=== PATIENT | male | born 1995 | race Caucasian/White ===

== ENCOUNTER 2019-02-18 23:37 | Emergency (ER) | payer OTHER ==
[~2019-02-18] VITALS: Ht 185.4 cm; Wt 83.1 kg
[2019-02-18 23:43] VITALS: BP 143/103
--- NOTE | 2019-02-19 00:24 | NUR ---
Pt states lifting weights this pm and felt "something cause a lot of pain in my chest" while lifting. Pt denies any sob. Pt grasping chest and appears to be in moderate distress. Denies any medical hx/family hx.
[2019-02-19] MEDS ORDERED: KETOROLAC 30 MG/1 ML ONE (00:29)
[2019-02-19] MEDS ORDERED: KETOROLAC 30 MG/1 ML IM ONE (00:30)
== END 2019-02-19 01:28 | disposition home or self-care (01) ==
LOC: ED 02-19 01:00
DX: R07.89 Other chest pain (principal); J45.909 Unspecified asthma, uncomplicated
CPT/HCPCS: 71046; 93005; 96372; 99283; J1885